=== PATIENT | female | born 2000 | race Caucasian/White ===

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

== ENCOUNTER 2019-02-06 18:54 | Emergency (ER) | payer OTHER ==
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
[2019-02-06 20:00] VITALS: BP 116/72
== END 2019-02-06 20:03 | disposition home or self-care (01) ==
LOC: ER 19:12
DX: N63.0 Unspecified lump in unspecified breast (principal)

== ENCOUNTER → 2019-02-27 | Outpatient (CLI) | payer OTHER ==
[~2019-02-27] MED LIST changes: +ETON68IM SQ
--- NOTE | 2019-03-05 10:49 | RADIOLOGY IMAGING REPORT ---
FACILITY: [facility] PATIENT NAME: LOULOU KHAN : [id number] MR: [id number] V: [id number] EXAM DATE: ORDERING PHYSICIAN: SYLVIA MEAD TECHNOLOGIST: Verona Powers RDMS(ABD,OBGYN,BR),RVT PROCEDURE:US RIGHT BREAST COMPARISON:None. INDICATIONS:Palpable lump. FINDINGS: Ultrasound imaging of the Right breast demonstrate a 2.0 x 2.2 x 1.0cm mass in the 11 o'clock position 3cm from the nipple. The mass has smooth borders, is wider than it is tall, and demonstrates isochoric fluid transmission. DIAGNOSTIC CATEGORY 3--PROBABLY BENIGN FINDING. RECOMMENDATIONS: 6 MONTH ULTRASOUND FOLLOW-UP OF THE RIGHT BREAST TO CONFIRM STABILITY. IMPRESSION: BIRADS 3: Probably benign finding. Patient's palpable lump at the 11 o'clock position is most consistent with a benign fibroadenoma. This was discussed with patient by Dr. Quesada. Dictated by: Lex Quesada M.D. on 02/27/2019 at 12:38 Transcribed by: CHAVO on 02/28/2019 at 11:08 Approved by: Lex Toledo on 03/05/2019 at 10:45 [facility]
== END ==
LOC: MAMO 00:51
PROVIDERS: ATTEND Obstetrics & Gynecology
DX: N63.10 Unspecified lump in the right breast, unspecified quadrant (principal)